=== PATIENT | female | born 1955 | race Two or more races ===

== ENCOUNTER 2019-10-11 07:40 | Inpatient (IN) | payer MEDICARE, OTHER ==
[~2019-10-11] VITALS: Ht 157.5 cm; Wt 67.6 kg
--- NOTE | 2019-10-11 07:43 | Emergency Room Report ---
History of Present Illness General Chief Complaint: Flu Like Symptoms Source: Patient, EMS Present Illness HPI Patient is a 64-year-old female presents after increased generalized body aches and fever. She had also reported having some chest pain associate with some coughing. She reports of increased a yellow-green sputum. She had been seen at [facility] yesterday. She was given some prescriptions but was unable to fill them. Patient a prior history of renal transplant as well as diabetes. She denies any vomiting. She had been taking Tylenol. She reports having prior history of hypertension as well. Allergies: Coded Allergies: No Known Allergies (Unverified , 10/11/19) Patient History Past Medical History: see triage record Past Surgical History: other - transplant kidney Reviewed Nursing Documentation: PMH: Agreed; PSxH: Agreed Review of Systems All Other Systems: negative except mentioned in HPI Physical Exam General Appearance: alert, GCS 15, Chronically Ill Eyes: bilateral eye other - disconjugate gaze ENT: hearing grossly normal Neck: full range of motion Cardiovascular #1: no edema, tachycardia Gastrointestinal: normal bowel sounds, soft Genitourinary: no CVA tenderness Musculoskeletal: normal inspection, back normal Neurologic: alert, motor strength/tone normal, tuyere fitter III-XII nml as tested, EOM palsy, oriented x3 Psychiatric: normal inspection, judgement/insight normal Skin: no rash Medical Decision Making Diagnostic Impression: Primary Impression: Severe sepsis Additional Impressions: Pneumonia Transplant ER Course Patient presented for fever and chest discomfort. Differential diagnosis include was not limited to pneumonia, influenza, myocardial infarction, rejection among others. Because of complexity of patient's case laboratory tests and imaging studies were ordered. Patient was noted to have recent visit to [facility]. Will attempt to obtain old records. Patient will be empirically given IV fluids as well as IV antibiotics as she is high risk for sepsis given her transplant status.Patient was initially noted to be hypoxic. She was started on supplemental oxygen. Patient states that she does not use oxygen at home.Laboratory testing was notable for normal white blood count. Patient was noted to have elevated temperature in the emergency department. Patient will be hospitalized due to acute febrile illness and transplant status as well as hypoxemia.Given the current prevalence of influenza patient was given oral Tamiflu.Patient was discussed with Dr. Sherman for [facility] ( Dr. Carrasco) to panel physician. Patient will be admitted to stepdown unit. SEPSIS RE-EVALUATION: Blane Simmons MD, Performed the Sepsis Re-evaluation at 10:08. Patient had improvement in her heart rate down to 93 blood pressure continues to be stable. Improvement in blood pressure. Skin perfusion appears to be normal as is mental status. Labs Test 10/11/19 07:59 White Blood Count 6.1 K/UL (4.8-10.8) Red Blood Count 3.62 M/UL (4.20-5.40) Hemoglobin 10.6 G/DL (12.0-16.0) Hematocrit 33.2 % (37.0-47.0) Mean Corpuscular Volume 92 FL (80-99) Mean Corpuscular Hemoglobin 29.3 PG (27.0-31.0) Mean Corpuscular Hemoglobin Concent 31.9 G/DL (32.0-36.0) Red Cell Distribution Width 11.9 % (11.6-14.8) Platelet Count 130 K/UL (150-450) Mean Platelet Volume 7.5 FL (6.5-10.1) Neutrophils (%) (Auto) % (45.0-75.0) Lymphocytes (%) (Auto) % (20.0-45.0) Monocytes (%) (Auto) % (1.0-10.0) Eosinophils (%) (Auto) % (0.0-3.0) Basophils (%) (Auto) % (0.0-2.0) Differential Total Cells Counted 100 Neutrophils % (Manual) 89 % (45-75) Lymphocytes % (Manual) 6 % (20-45) Monocytes % (Manual) 2 % (1-10) Eosinophils % (Manual) 0 % (0-3) Basophils % (Manual) 0 % (0-2) Band Neutrophils 3 % (0-8) Platelet Estimate Decreased Platelet Morphology Normal Hypochromasia 1+ Anisocytosis 1+ Sodium Level 139 MMOL/L (136-145) Potassium Level 3.7 MMOL/L (3.5-5.1) Chloride Level 104 MMOL/L (98-107) Carbon Dioxide Level 19 MMOL/L (21-32) Anion Gap 16 mmol/L (5-15) Blood Urea Nitrogen 32 mg/dL (7-18) Creatinine 1.4 MG/DL (0.55-1.30) Estimat Glomerular Filtration Rate 38.0 mL/min (>60) Glucose Level 110 MG/DL (74-106) Lactic Acid Level 4.00 mmol/L (0.4-2.0) Calcium Level 8.2 MG/DL (8.5-10.1) Phosphorus Level 3.3 MG/DL (2.5-4.9) Magnesium Level 1.1 MG/DL (1.8-2.4) Total Bilirubin 1.0 MG/DL (0.2-1.0) Aspartate Amino Transf (AST/SGOT) 75 U/L (15-37) Alanine Aminotransferase (ALT/SGPT) 42 U/L (12-78) Alkaline Phosphatase 142 U/L (46-116) Total Creatine Kinase 78 U/L (26-308) Creatine Kinase MB < 0.5 NG/ML (0.0-3.6) Creatine Kinase MB Relative Index 0.6 Troponin I 0.000 ng/mL (0.000-0.056) Total Protein 6.5 G/DL (6.4-8.2) Albumin 3.5 G/DL (3.4-5.0) Globulin 3.0 g/dL Albumin/Globulin Ratio 1.2 (1.0-2.7) EKG Diagnostic Results Rate: tachycardiac - 113 Rhythm: NSR ST Segments: no acute changes ASA given to the pt in ED: No Rhythm Strip Diag. Results EP Interpretation: yes Rhythm: no PVC's, no ectopy, other - sinus tachycardia 112 Reevaluation Time: 09:06 Status: improved Reevaluation Impression Patient was given IV fluids as well as IV IV antibiotics. Chest x-ray showed some evidence of left sided infiltrate and possible pneumonia. Patient was noted to have elevated lactic acid level. She was noted to have improved heart rate as well as improved perfusion Disposition: ADMITTED INPATIENT Condition: Stable Scripts Unable to Obtain Active Prescriptions or Reported Meds Blane Vides MD Oct 11, 2019 07:43
[2019-10-11] MEDS ORDERED: Azithromycin 500 MG in D5W 275 ML IVPB ONE (08:00)
[2019-10-11] MEDS ORDERED: Ampicillin/Sulbactam Sod 3 GM in NS 110 ML IVPB ONE (08:00)
[2019-10-11 08:16] VITALS: BP 153/62
[2019-10-11] MEDS ORDERED: Unasyn 1.5gm Vial ONE (08:22)
[2019-10-11] MEDS ORDERED: Acetaminophen 500mg (ES) tab ORAL ONE (08:30)
[2019-10-11 08:34] LABS: HEMATOCRIT 33.2 % (37.0-47.0); HEMOGLOBIN 10.6 G/DL (12.0-16.0); MEAN CORPUSCULAR VOLUME 92 FL (80-99); PLATELET COUNT 130 K/UL (150-450); RED BLOOD COUNT 3.62 M/UL (4.20-5.40); RED CELL DISTRIBUTION WIDTH 11.9 % (11.6-14.8); WHITE BLOOD COUNT 6.1 K/UL (4.8-10.8)
[2019-10-11 08:41] LABS: ANION GAP 16 mmol/L (5-15); BLOOD UREA NITROGEN 32 mg/dL (7-18); CALCIUM 8.2 MG/DL (8.5-10.1); CARBON DIOXIDE 19 MMOL/L (21-32); CHLORIDE 104 MMOL/L (98-107); CREATININE 1.4 MG/DL (0.55-1.30); POTASSIUM 3.7 MMOL/L (3.5-5.1); SODIUM 139 MMOL/L (136-145)
[2019-10-11] MEDS ORDERED: Oseltamivir 75mg cap ORAL ONE (08:45)
[2019-10-11 08:54] LABS: ALANINE AMINOTRANSFERASE 42 U/L (12-78); ALBUMIN 3.5 G/DL (3.4-5.0); ALBUMIN/GLOBULIN RATIO 1.2 (1.0-2.7); ALKALINE PHOSPHATASE 142 U/L (46-116); ASPARTATE AMINO TRANSFERASE 75 U/L (15-37); CKMB < 0.5 NG/ML (0.0-3.6); CREATINE KINASE 78 U/L (26-308); PHOSPHORUS 3.3 MG/DL (2.5-4.9)
[2019-10-11] MEDS ORDERED: Azithromycin 500mg Inj IV ONE (08:56)
--- NOTE | 2019-10-11 09:03 | Diagnostic Imaging Report ---
Indication: Shortness of breath, fever Technique: One view of the chest Comparison: none Findings: Inspiration is suboptimal, with crowding of the bronchovascular markings at both lung bases. There is generalized interstitial congestion. There are also likely more focal bilateral basilar airspace opacities, left greater than right. The heart size is normal. The pleural spaces are clear. Venous stents are seen in the left axilla and left subclavian veins Impression: Generalized interstitial congestion, may indicate pulmonary edema. More focal airspace opacities are seen at both lung bases, left greater than right, may indicate pulmonary airspace edema or infiltrates secondary to pneumonia. Correlate with clinical findings Findings discussed by phone with Dr. Vides in the emergency room at the time of interpretation
[2019-10-11 09:18] LABS: APPEARANCE,URINE CLEAR; BILIRUBIN, URINE NEGATIVE (NEGATIVE); COLOR,URINE PALE YELLOW; GLUCOSE, URINE (UA) NEGATIVE (NEGATIVE); KETONES,URINE NEGATIVE (NEGATIVE); LEUKOCYTE ESTERASE ,URINE 2+ (NEGATIVE); NITRITE,URINE NEGATIVE (NEGATIVE); PH,URINE 5 (4.5-8.0); PROTEIN,URINE 2+ (NEGATIVE); UROBILINOGEN,URINE NORMAL MG/DL (0.0-1.0)
[2019-10-11 09:36] VITALS: BP 153/62
[2019-10-11 11:48] VITALS: BP 141/60
--- NOTE | 2019-10-11 11:55 | History and Physical ---
History of Present Illness General Date patient seen: Oct 11, 2019 Reason for Hospitalization: Flu Like Symptoms Present Illness HPI 64-year-old female with history of kidney transplantation discharged from [facility] with pneumonia/influenza the night before admission , now presenting with persistent yellow green phlegm. She was given a prescription that she has not filled yet, unclear as to what medication was prescribed. No fevers, chills , chest pain, or shortness of breath. Denies nausea, vomiting, diarrhea, constipation, or other GI complaints. No sick contacts or recent travel. Kidney trans plant has been functioning well. In the ER she was found to be febrile to 103.4F, bp 153/87, pulse 124, rr 29, o2 sat 95% on 2L Cr. 1.4, baseline unknown. H/H 10.6/33.2, plt 130 Chest x-ray showed possible bibasilar infiltrates. PAST MEDICAL HISTORY: DM, s/p kidney transplant 3 yrs ago PAST SURGICAL HISTORY: Kidney transplantation. SOCIAL HISTORY: She denies any tobacco, alcohol, or drug use. FAMILY HISTORY: DM Allergies: Coded Allergies: No Known Allergies (Unverified , 10/11/19) Medication History Scheduled Atorvastatin (Lipitor), 40 MG ORAL BEDTIME, (Reported) Clopidogrel Bisulfate* (Plavix*), 75 MG ORAL DAILY, (Reported) Dexlansoprazole (Dexilant), 60 MG ORAL DAILY, (Reported) Folic Acid* (Folic Acid*), 1 MG ORAL DAILY, (Reported) Insulin Glargine (Lantus), 0 SUBQ TID, (Reported) Labetalol HCl (Labetalol HCl), 50 MG ORAL EVERY 12 HOURS, (Reported) Multivitamins* (Multivitamins*), 1 TAB ORAL DAILY, (Reported) Mycophenolate Sodium (Myfortic), 180 MG PO EVERY 12 HOURS, (Reported) Prednisone (Prednisone), 5 MG PO DAILY, (Reported) Sodium Polystyrene Sulfonate (Sodium Polystyrene Sulfonate), 15 GM PO NEEDED, (Reported) Scheduled PRN Acetaminophen (Acetaminophen), 650 MG ORAL Q4H PRN for For Pain, (Reported) Bisacodyl (Dulcolax), 10 MG PO for Constipation, (Reported) Clonidine HCl (Clonidine HCl), 0.2 MG PO PRN PRN for For High Blood Pressure, ( Reported) Docusate Sodium (Docusate Sodium), 100 MG ORAL TWICE A DAY PRN for Constipation, (Reported) Loratadine (Loratadine), 10 MG PO DAILY PRN for Itching, (Reported) Ondansetron (Zofran), 2 MG ORAL Q4HR PRN for Nausea & Vomiting, (Reported) Miscellaneous Medications Tacrolimus (Envarsus Xr), 1 MG PO, (Reported) Patient History Healthcare decision maker Resuscitation status Advanced Directive on File Review of Systems Constitutional: Reports: no symptoms, see HPI, chills, sweats, fever, malaise, weakness, other - yellow phlegm Eye: Denies: no symptoms, see HPI, eye pain, blurred vision, tearing, double vision, nose pain, nose congestion, acuity changes, discharge, other ENT: Denies: no symptoms, see HPI, ear pain, ear discharge, nose pain, nose congestion, throat pain, throat swelling, mouth pain, hearing loss, nasal discharge, other Respiratory: Reports: cough, shortness of breath Cardiovascular: Denies: no symptoms, see HPI, chest pain, edema, palpitations, syncope, PND, other Gastrointestinal: Denies: no symptoms, see HPI, abdominal pain, constipation, diarrhea, nausea, vomiting, melena, hematemesis, other Genitourinary: Denies: no symptoms, see HPI, discharge, dysuria, frequency, hematuria, pain, retention, incontinence, urgency, vag bleed/dc, other Musculoskeletal: Denies: no symptoms, see HPI, back pain, gout, joint pain, joint swelling, muscle pain, muscle stiffness, other Skin: Denies: no symptoms, see HPI, rash, change in color, change in hair/nails , dryness, lesions, other Psychiatric: Denies: no symptoms, see HPI, prior hx, anxiety, depressed feelings, emotional problems, SI, HI, hallucinations, other Neurological: Denies: no symptoms, see HPI, headache, numbness, paresthesia, seizure, tingling, tremors, focal weakness, syncope, dizziness, other Endocrine: Denies: no symptoms, see HPI, excessive sweating, flushing, intolerance to temperature, increased thirst, increased urine, unexplained weight loss, other Physical Exam Physical Exam Narrative GENERAL: moderte respiratory distress. Awake, alert, and oriented x3. HEENT: Normocephalic and atraumatic. NECK: Supple no JVD. CHEST: coarse breath sounds, no rales, or wheezing HEART: Regular rate and rhythm.S1S2, no m/r/g ABDOMEN: Soft, nontender, and nondistended, no organomegaly EXTREMITIES: No cyanosis, clubbing or edema NEUROLOGICAL: Alert and oriented x3, grossly normal SKIN: Nol ulcers Last 24 Hour Vital Signs Date Time Temp Pulse Resp B/P (MAP) Pulse Ox O2 Delivery O2 Flow Rate FiO2 10/11/19 11:48 101.0 93 27 141/60 95 Room Air 2.0 10/11/19 09:36 102.4 97 24 153/62 99 Room Air 2.0 10/11/19 09:35 102.4 10/11/19 08:17 107 29 Room Air 10/11/19 08:16 103.4 107 29 153/62 92 Nasal Cannula 2.0 10/11/19 07:35 99.9 124 20 153/87 (109) 95 Room Air Laboratory Tests Test 10/11/19 07:59 10/11/19 09:00 10/11/19 09:48 White Blood Count 6.1 K/UL (4.8-10.8) Red Blood Count 3.62 M/UL (4.20-5.40) L Hemoglobin 10.6 G/DL (12.0-16.0) L Hematocrit 33.2 % (37.0-47.0) L Mean Corpuscular Volume 92 FL (80-99) Mean Corpuscular Hemoglobin 29.3 PG (27.0-31.0) Mean Corpuscular Hemoglobin Concent 31.9 G/DL (32.0-36.0) L Red Cell Distribution Width 11.9 % (11.6-14.8) Platelet Count 130 K/UL (150-450) L Mean Platelet Volume 7.5 FL (6.5-10.1) Neutrophils (%) (Auto) % (45.0-75.0) Lymphocytes (%) (Auto) % (20.0-45.0) Monocytes (%) (Auto) % (1.0-10.0) Eosinophils (%) (Auto) % (0.0-3.0) Basophils (%) (Auto) % (0.0-2.0) Differential Total Cells Counted 100 Neutrophils % (Manual) 89 % (45-75) H Lymphocytes % (Manual) 6 % (20-45) L Monocytes % (Manual) 2 % (1-10) Eosinophils % (Manual) 0 % (0-3) Basophils % (Manual) 0 % (0-2) Band Neutrophils 3 % (0-8) Platelet Estimate Decreased L Platelet Morphology Normal Hypochromasia 1+ Anisocytosis 1+ Sodium Level 139 MMOL/L (136-145) Potassium Level 3.7 MMOL/L (3.5-5.1) Chloride Level 104 MMOL/L (98-107) Carbon Dioxide Level 19 MMOL/L (21-32) L Anion Gap 16 mmol/L (5-15) H Blood Urea Nitrogen 32 mg/dL (7-18) H Creatinine 1.4 MG/DL (0.55-1.30) H Estimat Glomerular Filtration Rate 38.0 mL/min (>60) Glucose Level 110 MG/DL (74-106) H Lactic Acid Level 4.00 mmol/L (0.4-2.0) H 1.90 mmol/L (0.66-2.22) Calcium Level 8.2 MG/DL (8.5-10.1) L Phosphorus Level 3.3 MG/DL (2.5-4.9) Magnesium Level 1.1 MG/DL (1.8-2.4) L Total Bilirubin 1.0 MG/DL (0.2-1.0) Aspartate Amino Transf (AST/SGOT) 75 U/L (15-37) H Alanine Aminotransferase (ALT/SGPT) 42 U/L (12-78) Alkaline Phosphatase 142 U/L (46-116) H Total Creatine Kinase 78 U/L (26-308) Creatine Kinase MB < 0.5 NG/ML (0.0-3.6) Creatine Kinase MB Relative Index 0.6 Troponin I 0.000 ng/mL (0.000-0.056) Total Protein 6.5 G/DL (6.4-8.2) Albumin 3.5 G/DL (3.4-5.0) Globulin 3.0 g/dL Albumin/Globulin Ratio 1.2 (1.0-2.7) Urine Color Pale yellow Urine Appearance Clear Urine pH 5 (4.5-8.0) Urine Specific [place] 1.005 (1.005-1.035) Urine Protein 2+ (NEGATIVE) H Urine Glucose (UA) Negative (NEGATIVE) Urine Ketones Negative (NEGATIVE) Urine Blood 4+ (NEGATIVE) H Urine Nitrite Negative (NEGATIVE) Urine Bilirubin Negative (NEGATIVE) Urine Urobilinogen Normal MG/DL (0.0-1.0) Urine Leukocyte Esterase 2+ (NEGATIVE) H Urine RBC 15-20 /HPF (0 - 2) H Urine WBC 40-60 /HPF (0 - 2) H Urine Squamous Epithelial Cells Occasional /LPF Urine Bacteria Occasional /HPF (NONE) Microbiology Date/Time Source Procedure Growth Status 10/11/19 07:59 Nasal Nares - Final Complete 10/11/19 07:59 Nasal Nares - Final Complete Height (Feet): 5 Height (Inches): 2.00 Weight (Pounds): 150 Assessment/Plan Status: stable Assessment/Plan: 64 year old female with DM and renal transplant admitted with severe sepsis/ septic shock (lactate 4). #Severe Sepsis/ septic shock (severe sepsis + lactate 4) due to possible healthcare-associated pneumonia or viral syndrome. Possibly UTI. in an immunocompromised patient with renal transplant #Acute hypoxic respiratory failure (tachypneic, low oxygen saturation requiring oxygen therapy) #UTI #Lactic acidosis # End-stage renal disease, status post kidney transplant three years ago at [facility] (details of transplant, not known). #ILYA, possible graft nephropathy, or underlying ckd #Thrombocytopenia likely related to sepsis #Anemia- no evidence of acute blood loss Plan Admit to step down unit, place on telemetry IVF- sepsis dose O2 to keep oxygen saturation >95% ABG zosyn, vancomycin, azithromycin, tamiflu check cultures, labs, serology and chest CT Follow up serologies. CT scan of the chest. echocardiogram will try to transfer with [facility], pulmonary and ID consults Renal dose antibiotics avoid nephrotoxic meds Anemia work up Monitor platelet count Immunosuppression per Nephrology and ID Awaiting medication list and further records. VTE ppx SCDs. GI ppx: not indicated Code status: Full code Disposition: Transfer I spent 75 minutes on this patient's case, and 40 minutes was dedicated to critical care. Critical Care Services performed include: Telemetry Review Hemodynamic measurement interpretation Laboratory data review and interpretation Radiology image review and interpretation Interpretation of ABG's Discussion of patient's care with step down team, step down Nursing staff and/ or consulting services. Case discussed with keycase assembler to initiate transfer plan of care discussed with patient's son Jeison I spent an additional 35 minutes in chart review, obtaining old records, labs and imaging. The time of my note may not reflect the time of my patient encounter. Guero Sherman M.D. Oct 11, 2019 11:55
[2019-10-11] MEDS ORDERED: HYDROmorphone 1mg/ml Carpuject IVP PRN (12:00)
[2019-10-11] MEDS ORDERED: Albuterol/Ipratropium 3ml neb HHN PRN (12:00)
[2019-10-11] MEDS ORDERED: Milk of Magnesia 30ml Ud ORAL PRN (12:00)
[2019-10-11] MEDS ORDERED: LORazepam 1mg tab ORAL PRN (12:00)
[2019-10-11] MEDS ORDERED: Zolpidem 5mg tab ORAL PRN (12:00)
--- NOTE | 2019-10-11 12:44 | Consultation ---
Consult Note Consult Note asked to eval at the request of Dr Sherman Chief Complaint: Flu Like Symptoms Patient is a 64-year-old female presents after increased generalized body aches and fever. She had also reported having some chest pain associate with some coughing. She reports of increased a yellow-green sputum. She had been seen at [facility] yesterday. She was given some prescriptions but was unable to fill them. Patient a prior history of renal transplant as well as diabetes. She denies any vomiting. She had been taking Tylenol. She reports having prior history of hypertension as well. No Known Allergies (Unverified , 10/11/19) Past Surgical History: other - transplant kidney Reviewed Nursing Documentation: PMH: Agreed; PSxH: Agreed examined no med list discussed with Dr sherman Assessment/Plan Sepsis , high Lactic level UTI s/p Kidney Transplant 3 y ago in [facility] Low mag of 1.1 Cr 1.4 - renal failure Anemia Mag IV IV Fluids need to get the immunosupressants meds from [facility] I favor transfer to [facility] under transplant team Jaime Stein MD Oct 11, 2019 12:44
--- NOTE | 2019-10-11 12:47 | Infectious Diseases Prog Note ---
Assessment/Plan Assessment/Plan Full consult dictated: A) 1) sepsis, uti, pna, fevers 2) renal transplant 3) immunocompromised 4) allergies - nkda 5) pmh noted P) 1) zosyn, vancomycin, azithromycin, tamiflu 2) check cultures, labs, serology and chest x-ray 3) will f/u 4) thanks Subjective Allergies: Coded Allergies: No Known Allergies (Unverified , 10/11/19) Objective Vital Signs Last 24 Hour Vital Signs Date Time Temp Pulse Resp B/P (MAP) Pulse Ox O2 Delivery O2 Flow Rate FiO2 10/11/19 11:50 101.0 93 27 141/60 95 Room Air 2.0 10/11/19 11:48 101.0 93 27 141/60 95 Room Air 2.0 10/11/19 09:36 102.4 97 24 153/62 99 Room Air 2.0 10/11/19 09:35 102.4 10/11/19 08:17 107 29 Room Air 10/11/19 08:16 103.4 107 29 153/62 92 Nasal Cannula 2.0 10/11/19 07:35 99.9 124 20 153/87 (109) 95 Room Air Height (Feet): 5 Height (Inches): 2.00 Weight (Pounds): 150 Microbiology Date/Time Source Procedure Growth Status 10/11/19 07:59 Nasal Nares - Final Complete 10/11/19 07:59 Nasal Nares - Final Complete Laboratory Tests Test 10/11/19 07:59 10/11/19 09:00 10/11/19 09:48 White Blood Count 6.1 K/UL (4.8-10.8) Red Blood Count 3.62 M/UL (4.20-5.40) L Hemoglobin 10.6 G/DL (12.0-16.0) L Hematocrit 33.2 % (37.0-47.0) L Mean Corpuscular Volume 92 FL (80-99) Mean Corpuscular Hemoglobin 29.3 PG (27.0-31.0) Mean Corpuscular Hemoglobin Concent 31.9 G/DL (32.0-36.0) L Red Cell Distribution Width 11.9 % (11.6-14.8) Platelet Count 130 K/UL (150-450) L Mean Platelet Volume 7.5 FL (6.5-10.1) Neutrophils (%) (Auto) % (45.0-75.0) Lymphocytes (%) (Auto) % (20.0-45.0) Monocytes (%) (Auto) % (1.0-10.0) Eosinophils (%) (Auto) % (0.0-3.0) Basophils (%) (Auto) % (0.0-2.0) Differential Total Cells Counted 100 Neutrophils % (Manual) 89 % (45-75) H Lymphocytes % (Manual) 6 % (20-45) L Monocytes % (Manual) 2 % (1-10) Eosinophils % (Manual) 0 % (0-3) Basophils % (Manual) 0 % (0-2) Band Neutrophils 3 % (0-8) Platelet Estimate Decreased L Platelet Morphology Normal Hypochromasia 1+ Anisocytosis 1+ Sodium Level 139 MMOL/L (136-145) Potassium Level 3.7 MMOL/L (3.5-5.1) Chloride Level 104 MMOL/L (98-107) Carbon Dioxide Level 19 MMOL/L (21-32) L Anion Gap 16 mmol/L (5-15) H Blood Urea Nitrogen 32 mg/dL (7-18) H Creatinine 1.4 MG/DL (0.55-1.30) H Estimat Glomerular Filtration Rate 38.0 mL/min (>60) Glucose Level 110 MG/DL (74-106) H Lactic Acid Level 4.00 mmol/L (0.4-2.0) H 1.90 mmol/L (0.66-2.22) Calcium Level 8.2 MG/DL (8.5-10.1) L Phosphorus Level 3.3 MG/DL (2.5-4.9) Magnesium Level 1.1 MG/DL (1.8-2.4) L Total Bilirubin 1.0 MG/DL (0.2-1.0) Aspartate Amino Transf (AST/SGOT) 75 U/L (15-37) H Alanine Aminotransferase (ALT/SGPT) 42 U/L (12-78) Alkaline Phosphatase 142 U/L (46-116) H Total Creatine Kinase 78 U/L (26-308) Creatine Kinase MB < 0.5 NG/ML (0.0-3.6) Creatine Kinase MB Relative Index 0.6 Troponin I 0.000 ng/mL (0.000-0.056) Total Protein 6.5 G/DL (6.4-8.2) Albumin 3.5 G/DL (3.4-5.0) Globulin 3.0 g/dL Albumin/Globulin Ratio 1.2 (1.0-2.7) Urine Color Pale yellow Urine Appearance Clear Urine pH 5 (4.5-8.0) Urine Specific [place] 1.005 (1.005-1.035) Urine Protein 2+ (NEGATIVE) H Urine Glucose (UA) Negative (NEGATIVE) Urine Ketones Negative (NEGATIVE) Urine Blood 4+ (NEGATIVE) H Urine Nitrite Negative (NEGATIVE) Urine Bilirubin Negative (NEGATIVE) Urine Urobilinogen Normal MG/DL (0.0-1.0) Urine Leukocyte Esterase 2+ (NEGATIVE) H Urine RBC 15-20 /HPF (0 - 2) H Urine WBC 40-60 /HPF (0 - 2) H Urine Squamous Epithelial Cells Occasional /LPF Urine Bacteria Occasional /HPF (NONE) Current Medications Medications (Trade) Dose Ordered Sig/Rodney Route PRN Reason Start Time Stop Time Status Last Admin Dose Admin Acetaminophen (Tylenol) 650 mg Q4H PRN ORAL Mild Pain (Pain Scale 1-3) 10/11/19 12:00 11/10/19 11:59 Acetaminophen (Tylenol) 650 mg Q4H PRN ORAL fever 10/11/19 12:00 11/10/19 11:59 Albuterol/ Ipratropium (Albuterol/ Ipratropium) 3 ml Q4H PRN HHN Shortness of Breath 10/11/19 12:00 10/16/19 11:59 Azithromycin 500 mg/Dextrose 275 ml @ 275 mls/hr Q24HRS IV 10/12/19 09:00 10/18/19 09:59 Clonidine HCl (Catapres Tab) 0.1 mg Q4H PRN ORAL bp over 165 syst 10/11/19 12:45 11/10/19 12:44 Dextrose (Dextrose 50%) 25 ml Q30M PRN IV Hypoglycemia 10/11/19 12:00 11/10/19 11:59 Dextrose (Dextrose 50%) 50 ml Q30M PRN IV Hypoglycemia 10/11/19 12:00 11/10/19 11:59 Dextrose/Sodium Chloride 1,000 ml @ 100 mls/hr Q10H IV 10/11/19 12:45 11/10/19 12:44 Docusate Sodium (Colace) 100 mg TWICE A DAY ORAL 10/11/19 12:45 11/10/19 12:44 Heparin Sodium (Porcine) (Heparin 5000 units/ml) 5,000 units EVERY 12 HOURS SUBQ 10/11/19 21:00 11/10/19 20:59 Hydromorphone HCl (Dilaudid) 1 mg Q4H PRN IVP Moderate Pain (Pain Scale 4-6) 10/11/19 12:00 10/18/19 11:59 Hydromorphone HCl (Dilaudid) 2 mg Q4H PRN IVP Severe Pain (Pain Scale 7-10) 10/11/19 12:00 10/18/19 11:59 Lorazepam (Ativan) 1 mg Q4H PRN ORAL For Anxiety 10/11/19 12:00 10/18/19 11:59 Magnesium Sulfate 100 ml @ 100 mls/hr Q1H IVPB 10/11/19 12:45 10/11/19 16:44 Ondansetron HCl (Zofran) 4 mg Q6H PRN IVP Nausea & Vomiting 10/11/19 12:00 11/10/19 11:59 Oseltamivir Phosphate (Tamiflu) 30 mg BID ORAL 10/11/19 18:00 10/16/19 17:59 Pantoprazole (Protonix) 40 mg BID ORAL 10/11/19 12:45 11/10/19 12:44 Piperacillin Sod/ Tazobactam Sod 3.375 gm/Sodium Chloride 110 ml @ 27.5 mls/hr EVERY 8 HOURS IVPB 10/11/19 14:00 10/16/19 13:59 Vancomycin HCl (Vanco rx to dose) 1 ea DAILY PRN MISC Per rx protocol 10/11/19 12:45 11/10/19 12:44 Vancomycin HCl 500 mg/Dextrose 110 ml @ 110 mls/hr Q12HR@0600,1800 IVPB 10/11/19 18:00 10/16/19 17:59 Zolpidem Tartrate (Ambien) 5 mg HSPRN PRN ORAL Insomnia 10/11/19 12:00 10/18/19 11:59 Ida New MD Oct 11, 2019 12:47
[2019-10-11] MEDS: D5NS 1,000 ML IV SCH ×2 (12:53→22:56)
[2019-10-11] MEDS: Docusate 100mg cap ORAL SCH ×2 (12:53→18:00)
--- NOTE | 2019-10-11 13:30 | Consultation ---
Consult Note Assessment/Plan DICT # [id number] Akbar Mercado MD Oct 11, 2019 13:30
[2019-10-11] MEDS ORDERED: ACETAMINOPHEN500 M5 ORAL (13:37)
[2019-10-11] MEDS ORDERED: MULTIVITAMINS1 EAC2 ORAL (13:37)
[2019-10-11] MEDS ORDERED: MYFORTIC180 MG PO (13:37)
[2019-10-11] MEDS ORDERED: CLONIDINE 0.2M0.2 MG PO (13:37)
[2019-10-11] MEDS ORDERED: ENVARSUS XR1 MG PO (13:37)
[2019-10-11] MEDS ORDERED: LIPITOR80 MG ORAL (13:37)
[2019-10-11] MEDS ORDERED: NORMODYNE100 MG ORAL (13:37)
[2019-10-11] MEDS ORDERED: FOLIC ACID1 MG ORAL (13:37)
[2019-10-11] MEDS ORDERED: DEXILANT60 MG ORAL (13:37)
[2019-10-11] MEDS ORDERED: PREDNISONE5 M4 PO (13:37)
[2019-10-11] MEDS ORDERED: ZOFRAN4 M1 ORAL (13:37)
[2019-10-11] MEDS ORDERED: PLAVIX75 MG ORAL (13:37)
[2019-10-11] MEDS ORDERED: DULCOLAX5 MG PO (13:38)
[2019-10-11] MEDS ORDERED: LORATADINE10 M2 PO (13:45)
[2019-10-11] MEDS ORDERED: DOCUSATE SODIU100 M2 ORAL (13:45)
[2019-10-11] MEDS ORDERED: SODIUM POL15 GM/60 M PO (13:45)
[2019-10-11] MEDS ORDERED: LANTUS SOL100 UNIT/1 SUBQ (13:45)
[2019-10-11] MEDS ORDERED: Piperacillin/Tazobactam 2.25 GM in D5W 55 ML IVPB SCH (14:00)
[2019-10-11] MEDS: Zoysn 3.37gm in NS 100ML IVPB SCH ×2 (15:07→22:06)
--- NOTE | 2019-10-11 16:45 | Consultation ---
DATE OF CONSULTATION: 10/11/2019 PULMONARY CONSULTATION CONSULTING PHYSICIAN: Akbar Mercado M.D. REFERRING PHYSICIAN: Dr. Guero Sherman. REASON FOR CONSULTATION: Pneumonia and flu-like symptoms. HISTORY OF PRESENT ILLNESS: The patient is a 64-year-old female with a history of kidney transplantation discharged from [facility] with pneumonia, now presenting with persistent yellow green phlegm. She was given prescriptions of which she is unclear. No fevers, chills, chest pain, or shortness of breath. No nausea, vomiting, diarrhea, constipation, or other complaints. Chest x-ray showed possible bibasilar infiltrates. The patient is being treated empirically for healthcare-associated pneumonia, urinary tract infection, and sepsis. PAST MEDICAL HISTORY: 1. Kidney transplant. 2. Diabetes. PAST SURGICAL HISTORY: Kidney transplantation. ALLERGIES: No known drug allergies. MEDICATIONS: Prior to admission medications not available. Current medications reviewed. SOCIAL HISTORY: She denies any tobacco, alcohol, or drug use. FAMILY HISTORY: Noncontributory. REVIEW OF SYSTEMS: Negative other than the history of present illness. PHYSICAL EXAMINATION: VITAL SIGNS: Temperature max is 103.4, heart rate 93, blood pressure 141/60, respiratory rate 27, saturating 95% on room air. GENERAL: She is a well-developed and well-nourished female in no acute distress. Awake, alert, and oriented x3. HEENT: Normocephalic and atraumatic. Oropharynx is clear with moist mucous membranes. NECK: Supple without lymphadenopathy or JVD. CHEST: Scattered coarse breath sounds. HEART: Regular rate and rhythm. ABDOMEN: Soft, nontender, and nondistended. EXTREMITIES: No cyanosis, clubbing or edema. ANCILLARY DATA: White count 6.1, hemoglobin 10.6, and platelet count 130. Sodium 139, potassium 3.7, chloride 104, bicarbonate 19, BUN 32, creatinine 1.4, glucose 110. Lactic acid 4, now 1.9. Calcium 8.2, phosphorus 3.3, magnesium 1.1. Total bilirubin 1, AST 75, ALT 42, alkaline phosphatase 142. CK 78. Troponin negative. Total protein 6.5, albumin 3.5, globulin 3.0, ratio 1.0. Urinalysis, 4+ blood, 2+ protein, 2+ leukocyte esterase. Chest x-ray reviewed by myself with bibasilar opacities. 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 PROBLEM LIST: 1. Febrile illness. 2. Sepsis versus viral syndrome. 3. Possible healthcare-associated pneumonia. 4. End-stage renal disease, status post kidney transplant three years ago at [facility] (details of transplant, not known). 5. Lactic acidosis, resolved. 6. Thrombocytopenia. 7. 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 TREATMENT PLAN: 1. Optimize pulmonary hygiene/mobilize as tolerated. 2. Titrate down FiO2 to keep saturations greater than 90%. 3. We will check an ABG to assess baseline gas exchange. 4. Continue Zosyn, vancomycin, azithromycin, Tamiflu per ID. 5. Follow up serologies. 6. We will obtain a CT scan of the chest. 7. Immunosuppression per Nephrology and ID. 8. Awaiting medication list and further records. 9. Monitor volumes and renal function. 10. Follow up echocardiogram. 11. DVT prophylaxis, SCDs. 12. Monitor platelet count. I would strongly advise transferring the patient to [facility] once it is possible. Dr. Calvert, thank you for allowing me to assist in the care of your patient. If I may be of any assistance in the future, please do not hesitate to ask. Akbar Mercado M.D. DR: Marco JOB#: [id number] CC:
[2019-10-11] MEDS: NovoLOG Insulin Flexpen SUBQ SCH ×2 (17:25→20:33)
[2019-10-11] MEDS: Vancomycin 500mg/D5W 110ml IVPB SCH ×2 (18:09)
[2019-10-11 20:00] VITALS: BP 160/78
[2019-10-11] MEDS: Heparin 5000 units/ml inj SUBQ SCH (20:34)
[2019-10-11] MEDS ORDERED: Atorvastatin 20mg tab ORAL SCH (21:00)
[2019-10-12] VITALS: BP 124/56
[2019-10-12 04:00] VITALS: BP 132/63
[2019-10-12 04:35] LABS: HEMATOCRIT 29.6 % (37.0-47.0); HEMOGLOBIN 9.7 G/DL (12.0-16.0); MEAN CORPUSCULAR VOLUME 91 FL (80-99); PLATELET COUNT 116 K/UL (150-450); RED BLOOD COUNT 3.26 M/UL (4.20-5.40); RED CELL DISTRIBUTION WIDTH 12.2 % (11.6-14.8); WHITE BLOOD COUNT 15.8 K/UL (4.8-10.8)
[2019-10-12] MEDS: Vancomycin 500mg/D5W 110ml IVPB SCH ×2 (05:17)
[2019-10-12 05:29] LABS: % IRON SATURATION 5 % (15-50); IRON 9 ug/dL (50-175); TOTAL IRON BINDING CAPACITY 177 ug/dL (250-450)
[2019-10-12 05:38] LABS: ALANINE AMINOTRANSFERASE 35 U/L (12-78); ALBUMIN 2.9 G/DL (3.4-5.0); ALKALINE PHOSPHATASE 102 U/L (46-116); ANION GAP 10 mmol/L (5-15); ASPARTATE AMINO TRANSFERASE 42 U/L (15-37); BLOOD UREA NITROGEN 18 mg/dL (7-18); CALCIUM 7.9 MG/DL (8.5-10.1); CARBON DIOXIDE 21 MMOL/L (21-32); CHLORIDE 108 MMOL/L (98-107); CHOLESTEROL 80 MG/DL (< 200); CREATININE 1.1 MG/DL (0.55-1.30); FERRITIN 980 NG/ML (8-388); GAMMA GLUTAMYL TRANSPEPTIDASE 153 U/L (5-85); HDL CHOLESTEROL 46 MG/DL (40-60); PHOSPHORUS 2.4 MG/DL (2.5-4.9); POTASSIUM 3.2 MMOL/L (3.5-5.1); SODIUM 139 MMOL/L (136-145); TRIGLYCERIDES 115 MG/DL (30-150)
[2019-10-12] MEDS: Zoysn 3.37gm in NS 100ML IVPB SCH (06:18)
[2019-10-12] MEDS: NovoLOG Insulin Flexpen SUBQ SCH ×2 (06:23→11:30)
[2019-10-12 08:00] VITALS: BP 148/78
--- NOTE | 2019-10-12 08:01 | General Progress Note ---
Assessment/Plan Status: stable Assessment/Plan: 64 year old female with DM and renal transplant admitted with severe sepsis/ septic shock (lactate 4). she usually gets her care at [facility], seen in the ER there last night, was told has flu, discharged home on unknown medication. assessment sepsis, uti, pna, in immunocompromised patient with renal transplant Plan zosyn, vancomycin, azithromycin, tamiflu check cultures, labs, serology and chest CT will try to transfer with [facility], pulmonary and ID consults Renal dose antibiotics avoid nephrotoxic meds Subjective Allergies: Coded Allergies: No Known Allergies (Unverified , 10/11/19) Objective Last 24 Hour Vital Signs Date Time Temp Pulse Resp B/P (MAP) Pulse Ox O2 Delivery O2 Flow Rate FiO2 10/12/19 04:00 2.0 10/12/19 04:00 98.4 83 2 132/63 (86) 97 10/12/19 04:00 83 10/12/19 04:00 Nasal Cannula 2.0 Nasal Cannula 2.0 10/12/19 00:00 98.8 83 24 124/56 (78) 96 10/12/19 00:00 Nasal Cannula 2.0 Nasal Cannula 2.0 10/12/19 00:00 81 10/11/19 20:58 99.9 10/11/19 20:11 84 20 96 Nasal Cannula 2.0 28 10/11/19 20:00 104 10/11/19 20:00 2.0 10/11/19 20:00 Nasal Cannula 2.0 Nasal Cannula 2.0 10/11/19 20:00 101.8 110 26 160/78 (105) 98 10/11/19 16:00 Nasal Cannula 2.0 Nasal Cannula 2.0 10/11/19 16:00 2.0 10/11/19 15:07 92 10/11/19 12:44 94 10/11/19 12:00 Nasal Cannula 2.0 Nasal Cannula 2.0 10/11/19 11:50 101.0 93 27 141/60 95 Room Air 2.0 10/11/19 11:48 101.0 93 27 141/60 95 Room Air 2.0 10/11/19 09:36 102.4 97 24 153/62 99 Room Air 2.0 10/11/19 09:35 102.4 10/11/19 08:17 107 29 Room Air 10/11/19 08:16 103.4 107 29 153/62 92 Nasal Cannula 2.0 Intake and Output 10/11/19 10/12/19 19:00 07:00 Intake Total 1598.459 ml 1748.167 ml Balance 1598.459 ml 1748.167 ml Intake Oral 480 ml 240 ml IV Total 1118.459 ml 1508.167 ml # Voids 2 5 # Bowel Movements 1 Laboratory Tests 10/11/19 09:00: Urine Color Pale yellow, Urine Appearance Clear, Urine pH 5, Urine Specific [place] 1.005, Urine Protein 2+H, Urine Glucose (UA) Negative, Urine Ketones Negative, Urine Blood 4+H, Urine Nitrite Negative, Urine Bilirubin Negative, Urine Urobilinogen Normal, Urine Leukocyte Esterase 2+H, Urine RBC 15-20H, Urine WBC 40-60H, Urine Squamous Epithelial Cells Occasional, Urine Bacteria Occasional 10/11/19 09:48: Lactic Acid Level 1.90 10/11/19 15:10: Coccidioides Antibody (Comp Fix) [Pending], Mycoplasma pneumoniae IgG Antibody [ Pending], Mycoplasma pneumoniae IgM Ab Titer [Pending] 10/11/19 16:35: Urine Legionella Antigen [Pending] 10/12/19 03:45: White Blood Count 15.8#H, Red Blood Count 3.26L, Hemoglobin 9.7L, Hematocrit 29.6L, Mean Corpuscular Volume 91, Mean Corpuscular Hemoglobin 29.9, Mean Corpuscular Hemoglobin Concent 32.9, Red Cell Distribution Width 12.2, Platelet Count 116L, Mean Platelet Volume 8.6, Neutrophils (%) (Auto) , Lymphocytes (%) ( Auto) , Monocytes (%) (Auto) , Eosinophils (%) (Auto) , Basophils (%) (Auto) , Neutrophils % (Manual) [Pending], Lymphocytes % (Manual) [Pending], Platelet Estimate [Pending], Platelet Morphology [Pending], Sodium Level 139, Potassium Level 3.2L, Chloride Level 108H, Carbon Dioxide Level 21, Anion Gap 10, Blood Urea Nitrogen 18, Creatinine 1.1, Estimat Glomerular Filtration Rate 50.2, Glucose Level 170H, Hemoglobin A1c 8.3H, Lactic Acid Level 1.40, Uric Acid 2.2L , Calcium Level 7.9L, Phosphorus Level 2.4L, Magnesium Level 2.6H, Iron Level 9L , Total Iron Binding Capacity 177L, Percent Iron Saturation 5L, Unsaturated Iron Binding 168, Ferritin 980H, Total Bilirubin 1.0, Gamma Glutamyl Transpeptidase 153H, Aspartate Amino Transf (AST/SGOT) 42H, Alanine Aminotransferase (ALT/SGPT) 35, Alkaline Phosphatase 102, Troponin I 0.141H, C- Reactive Protein, Quantitative 27.0H, Pro-B-Type Natriuretic Peptide 7136H, Total Protein 5.9L, Albumin 2.9L, Globulin 3.0, Albumin/Globulin Ratio 1.0, Triglycerides Level 115, Cholesterol Level 80, LDL Cholesterol 16, HDL Cholesterol 46, Cholesterol/HDL Ratio 1.7L, Thyroid Stimulating Hormone (TSH) 0.900, Cortisol AM Sample [Pending] Height (Feet): 5 Height (Inches): 2.00 Weight (Pounds): 149 Guero Sherman M.D. Oct 12, 2019 08:01
[2019-10-12] MEDS ORDERED: TAMIFLU30 MG ORAL (08:17)
[2019-10-12] MEDS ORDERED: ZOSYN 3.373.375 GM/1 IVPB (08:17)
[2019-10-12] MEDS ORDERED: VANCOMYCIN500 MG/101 IV (08:17)
[2019-10-12] MEDS ORDERED: AZITHROMYCIN500 M1 IVPB (08:17)
--- NOTE | 2019-10-12 08:18 | Discharge Summary ---
Discharge Summary Hospital Course Date of Admission Oct 11, 2019 at 09:06 Date of Discharge Admitting Diagnosis severe sepsis, shock pneumonia, renal transplant, ILYA HPI Mame Dunaway is a 64 year old female who was admitted on Oct 11, 2019 at 09:06 for Pneumonia, Renal Transplant Consultations ID, renal, Pulmonary Hospital Course 64 year old female with DM and renal transplant admitted with severe sepsis/ septic shock (lactate 4). #Severe Sepsis/ septic shock (severe sepsis + lactate 4) due to possible healthcare-associated pneumonia or viral syndrome. Possibly UTI. in an immunocompromised patient with renal transplant #Acute hypoxic respiratory failure (tachypneic, low oxygen saturation requiring oxygen therapy) #UTI #Lactic acidosis # End-stage renal disease, status post kidney transplant three years ago at [place] (details of transplant, not known). #ILYA, possible graft nephropathy, or underlying ckd #Thrombocytopenia likely related to sepsis #Anemia- no evidence of acute blood loss Plan Admit to step down unit, place on telemetry IVF- sepsis dose O2 to keep oxygen saturation >95% ABG zosyn, vancomycin, azithromycin, tamiflu check cultures, labs, serology and chest CT Follow up serologies. CT scan of the chest. echocardiogram will try to transfer with [facility], pulmonary and ID consults Renal dose antibiotics avoid nephrotoxic meds Anemia work up Monitor platelet count Immunosuppression per Nephrology and ID VTE ppx SCDs. GI ppx: not indicated Code status: Full code Disposition: Transfer to [facility] I spent 35 minutes on this patient's case, > 50% spent on counselling and care coordination The time of my note may not reflect the time of my patient encounter. Discharge Medications New Medications: Azithromycin (Azithromycin) 500 Mg Vial 500 MG IVPB Q24H for 4 Days, #4 VIAL Oseltamivir Phosphate (Tamiflu) 30 Mg Capsule 30 MG ORAL TWICE A DAY for 4 Days, #8 CAP Ugzgzweabrqr-Rnhm-Mwrrhffw,Iso (Zosyn 3.375 Gm Pre Mix-Bag) 3.375 Gm/50 Ml Froz.piggy 3.375 GM IVPB EVERY 8 HOURS for 7 Days, #20 BAG Vancomycin/Water For Inj (Peg) (Vancomycin 500 mg/100 ml Bag) 500 Mg/100 Ml Piggyback 500 MG IV EVERY 12 HOURS for 7 Days, #14 BAG Continued Medications: Acetaminophen (Acetaminophen) 500 Mg Tablet 650 MG ORAL Q4H PRN for For Pain, TAB (This prescription has been renewed) Atorvastatin (Lipitor) 80 Mg Tablet 40 MG ORAL BEDTIME, #30 TAB 0 Refills (This prescription has been renewed) Bisacodyl (Dulcolax) 5 Mg Tablet.dr 10 MG PO PRN for Constipation, TAB (This prescription has been renewed) Clonidine HCl (Clonidine HCl) 0.2 Mg Tablet 0.2 MG PO PRN PRN for For High Blood Pressure, TAB (This prescription has been renewed) for SBP > 145 or DBP > 85 Clopidogrel Bisulfate* (Plavix*) 75 Mg Tablet 75 MG ORAL DAILY, TAB (This prescription has been renewed) Dexlansoprazole (Dexilant) 60 Mg Cap.dr.bp 60 MG ORAL DAILY, CAP (This prescription has been renewed) Docusate Sodium (Docusate Sodium) 100 Mg Tablet 100 MG ORAL TWICE A DAY PRN for Constipation, #60 TAB 0 Refills (This prescription has been renewed) Folic Acid* (Folic Acid*) 1 Mg Tablet 1 MG ORAL DAILY, TAB (This prescription has been renewed) Insulin Glargine (Lantus) 100 Unit/1 Ml Insuln.pen 0 SUBQ TID, #1 EA 0 Refills (This prescription has been renewed) Labetalol HCl (Labetalol HCl) 100 Mg Tablet 50 MG ORAL EVERY 12 HOURS, TAB (This prescription has been renewed) for SBP > 145 or DBP > 85 Loratadine (Loratadine) 10 Mg Tablet 10 MG PO DAILY PRN for Itching, TAB (This prescription has been renewed) Multivitamins* (Multivitamins*) 1 Each Tablet 1 TAB ORAL DAILY, TAB 0 Refills (This prescription has been renewed) Mycophenolate Sodium (Myfortic) 180 Mg Tablet.dr 180 MG PO EVERY 12 HOURS, #4 TAB (This prescription has been renewed) Ondansetron (Zofran) 4 Mg Tablet 2 MG ORAL Q4HR PRN for Nausea & Vomiting, TAB (This prescription has been renewed) Prednisone (Prednisone) 5 Mg Tab.ds.pk 5 MG PO DAILY, PACK (This prescription has been renewed) Sodium Polystyrene Sulfonate (Sodium Polystyrene Sulfonate) 15 Gm/60 Ml Oral.susp 15 GM PO NEEDED, ML (This prescription has been renewed) Tacrolimus (Envarsus Xr) 1 Mg Tab.er.24h 1 MG PO, TAB (This prescription has been renewed) Discharge Condition Upon Discharge: stable Discharge Disposition Patient was discharged to [facility] Discharge Diagnoses: (1) Severe sepsis (2) Septic shock (3) Thrombocytopenia (4) Pneumonia (5) ILYA (acute kidney injury) Guero Sherman M.D. Oct 12, 2019 08:18
[2019-10-12] MEDS: D5NS 1,000 ML IV SCH (08:47)
[2019-10-12] MEDS: Heparin 5000 units/ml inj SUBQ SCH (08:48)
[2019-10-12] MEDS: Docusate 100mg cap ORAL SCH (08:55)
[2019-10-12] MEDS ORDERED: Azithromycin 500 MG in D5W 275 ML IV SCH (09:00)
[2019-10-12] MEDS ORDERED: Potassium Phosphate 30 MM in NS 275 ML IVPB ONE (09:00)
[2019-10-12] MEDS ORDERED: Potassium Phosphate 30 MM in NS 275 ML IV ONE (09:30)
[2019-10-12] MEDS ORDERED: D5NS 1,000 ML IV SCH (09:30)
[2019-10-12 12:00] VITALS: BP 123/70
[2019-10-12] MEDS ORDERED: Tubing IV Secondary IV ONE (12:31)
[2019-10-12] MEDS ORDERED: D5NS 1000ml IV ONE (12:31)
[2019-10-12] MEDS ORDERED: NS 275ml ONE (12:31)
--- NOTE | 2019-10-12 12:33 | Pulmonology Progress Note ---
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 PROBLEM LIST: 1. Febrile illness. 2. Sepsis versus viral syndrome. 3. Possible healthcare-associated pneumonia. 4. End-stage renal disease, status post kidney transplant three years ago at [facility] (details of transplant, not known). 5. Lactic acidosis, resolved. 6. Thrombocytopenia. 7. 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 TREATMENT PLAN: 1. Optimize pulmonary hygiene/mobilize as tolerated. 2. Titrate down FiO2 to keep saturations greater than 90%. 3. Continue Zosyn, vancomycin, azithromycin, Tamiflu per ID. 4. Immunosuppression per Nephrology and ID. 5. Monitor volumes and renal function. 6. DVT prophylaxis, SCDs. 7. Monitor platelet count. 8. Transfer to [facility] center Subjective Allergies: Coded Allergies: No Known Allergies (Unverified , 10/11/19) Subjective Tm 100 VSS less SOB less cough no FC no CP Going to [facility] Objective Last 24 Hour Vital Signs Date Time Temp Pulse Resp B/P (MAP) Pulse Ox O2 Delivery O2 Flow Rate FiO2 10/12/19 12:00 97.8 88 20 123/70 (87) 96 10/12/19 12:00 2.0 10/12/19 12:00 Nasal Cannula 2.0 Nasal Cannula 2.0 10/12/19 08:00 Nasal Cannula 2.0 Nasal Cannula 2.0 10/12/19 08:00 98.9 88 21 148/78 (101) 98 10/12/19 08:00 2.0 10/12/19 07:59 90 10/12/19 04:00 2.0 10/12/19 04:00 98.4 83 2 132/63 (86) 97 10/12/19 04:00 83 10/12/19 04:00 Nasal Cannula 2.0 Nasal Cannula 2.0 10/12/19 00:00 98.8 83 24 124/56 (78) 96 10/12/19 00:00 Nasal Cannula 2.0 Nasal Cannula 2.0 10/12/19 00:00 81 10/11/19 20:58 99.9 10/11/19 20:11 84 20 96 Nasal Cannula 2.0 28 10/11/19 20:00 104 10/11/19 20:00 2.0 10/11/19 20:00 Nasal Cannula 2.0 Nasal Cannula 2.0 10/11/19 20:00 101.8 110 26 160/78 (105) 98 10/11/19 16:00 Nasal Cannula 2.0 Nasal Cannula 2.0 10/11/19 16:00 2.0 10/11/19 15:07 92 10/11/19 12:44 94 Intake and Output 10/11/19 10/12/19 19:00 07:00 Intake Total 1598.459 ml 1748.167 ml Balance 1598.459 ml 1748.167 ml Intake Oral 480 ml 240 ml IV Total 1118.459 ml 1508.167 ml # Voids 2 5 # Bowel Movements 1 General Appearance: WD/WN, no acute distress HEENT: normocephalic, atraumatic, anicteric, mucous membranes moist Respiratory/Chest: chest wall non-tender, lungs clear, normal breath sounds, no respiratory distress, no accessory muscle use Cardiovascular: normal peripheral pulses, normal rate, regular rhythm Abdomen: normal bowel sounds, soft, non tender, no organomegaly, non distended , no mass Extremities: no cyanosis, no clubbing, no edema Microbiology Date/Time Source Procedure Growth Status 10/11/19 07:59 Blood Blood Culture - Preliminary Resulted 10/11/19 07:59 Nasal Nares - Final Complete 10/11/19 07:59 Nasal Nares - Final Complete 10/11/19 09:00 Urine,Clean Catch Urine Culture - Preliminary NO GROWTH Resulted Laboratory Tests 10/11/19 15:10: Coccidioides Antibody (Comp Fix) [Pending], Mycoplasma pneumoniae IgG Antibody [ Pending], Mycoplasma pneumoniae IgM Ab Titer [Pending] 10/11/19 16:35: Urine Legionella Antigen [Pending] 10/12/19 03:45: White Blood Count 15.8#H, Red Blood Count 3.26L, Hemoglobin 9.7L, Hematocrit 29.6L, Mean Corpuscular Volume 91, Mean Corpuscular Hemoglobin 29.9, Mean Corpuscular Hemoglobin Concent 32.9, Red Cell Distribution Width 12.2, Platelet Count 116L, Mean Platelet Volume 8.6, Neutrophils (%) (Auto) , Lymphocytes (%) ( Auto) , Monocytes (%) (Auto) , Eosinophils (%) (Auto) , Basophils (%) (Auto) , Differential Total Cells Counted 100, Neutrophils % (Manual) 84H, Lymphocytes % (Manual) 3L, Monocytes % (Manual) 3, Eosinophils % (Manual) 0, Basophils % ( Manual) 0, Band Neutrophils 10H, Platelet Estimate DecreasedL, Platelet Morphology Normal, Hypochromasia 2+, Anisocytosis 1+, Sodium Level 139, Potassium Level 3.2L, Chloride Level 108H, Carbon Dioxide Level 21, Anion Gap 10 , Blood Urea Nitrogen 18, Creatinine 1.1, Estimat Glomerular Filtration Rate 50.2, Glucose Level 170H, Hemoglobin A1c 8.3H, Lactic Acid Level 1.40, Uric Acid 2.2L, Calcium Level 7.9L, Phosphorus Level 2.4L, Magnesium Level 2.6H, Iron Level 9L, Total Iron Binding Capacity 177L, Percent Iron Saturation 5L, Unsaturated Iron Binding 168, Ferritin 980H, Total Bilirubin 1.0, Gamma Glutamyl Transpeptidase 153H, Aspartate Amino Transf (AST/SGOT) 42H, Alanine Aminotransferase (ALT/SGPT) 35, Alkaline Phosphatase 102, Troponin I 0.141H, C- Reactive Protein, Quantitative 27.0H, Pro-B-Type Natriuretic Peptide 7136H, Total Protein 5.9L, Albumin 2.9L, Globulin 3.0, Albumin/Globulin Ratio 1.0, Triglycerides Level 115, Cholesterol Level 80, LDL Cholesterol 16, HDL Cholesterol 46, Cholesterol/HDL Ratio 1.7L, Thyroid Stimulating Hormone (TSH) 0.900, Cortisol AM Sample [Pending] 10/12/19 07:48: Arterial Blood pH 7.396, Arterial Blood Partial Pressure CO2 31.4L, Arterial Blood Partial Pressure O2 63.7L, Arterial Blood HCO3 18.8L, Arterial Blood Oxygen Saturation 91.8L, Arterial Blood Base Excess -5.2L, Simone Test Positive 10/12/19 10:00: Troponin I 0.147H Current Medications Medications (Trade) Dose Ordered Sig/Rodney Route PRN Reason Start Time Stop Time Status Last Admin Dose Admin Acetaminophen (Tylenol) 650 mg Q4H PRN ORAL fever 10/11/19 12:00 11/10/19 11:59 10/11/19 20:28 Acetaminophen (Tylenol) 650 mg Q4H PRN ORAL Mild Pain (Pain Scale 1-3) 10/11/19 12:00 11/10/19 11:59 10/12/19 05:56 Albuterol/ Ipratropium (Albuterol/ Ipratropium) 3 ml Q4H PRN HHN Shortness of Breath 10/11/19 12:00 10/16/19 11:59 Atorvastatin Calcium (Lipitor) 40 mg BEDTIME ORAL 10/11/19 21:00 11/10/19 20:59 10/11/19 20:27 Azithromycin 500 mg/Dextrose 275 ml @ 275 mls/hr Q24HRS IV 10/12/19 09:00 10/18/19 09:59 10/12/19 08:55 Clonidine HCl (Catapres Tab) 0.1 mg Q4H PRN ORAL bp over 165 syst 10/11/19 12:45 11/10/19 12:44 Clopidogrel Bisulfate (Plavix) 75 mg DAILY ORAL 10/12/19 09:00 11/11/19 08:59 10/12/19 08:47 Dextrose (Dextrose 50%) 25 ml Q30M PRN IV Hypoglycemia 10/11/19 14:00 11/10/19 13:59 Dextrose (Dextrose 50%) 50 ml Q30M PRN IV Hypoglycemia 10/11/19 14:00 11/10/19 13:59 Dextrose/Sodium Chloride 1,000 ml @ 75 mls/hr [id number] IV 10/12/19 09:30 11/10/19 09:29 10/12/19 08:59 Docusate Sodium (Colace) 100 mg TWICE A DAY ORAL 10/11/19 12:45 11/10/19 12:44 10/11/19 12:53 Heparin Sodium (Porcine) (Heparin 5000 units/ml) 5,000 units EVERY 12 HOURS SUBQ 10/11/19 21:00 11/10/19 20:59 10/11/19 20:34 Hydromorphone HCl (Dilaudid) 1 mg Q4H PRN IVP Moderate Pain (Pain Scale 4-6) 10/11/19 12:00 10/18/19 11:59 Hydromorphone HCl (Dilaudid) 2 mg Q4H PRN IVP Severe Pain (Pain Scale 7-10) 10/11/19 12:00 10/18/19 11:59 Insulin Aspart (NovoLOG) BEFORE MEALS AND HS SUBQ 10/11/19 16:30 11/10/19 16:29 10/12/19 06:23 Lorazepam (Ativan) 1 mg Q4H PRN ORAL For Anxiety 10/11/19 12:00 10/18/19 11:59 Ondansetron HCl (Zofran) 4 mg Q6H PRN IVP Nausea & Vomiting 10/11/19 12:00 11/10/19 11:59 Oseltamivir Phosphate (Tamiflu) 30 mg BID ORAL 10/11/19 18:00 10/16/19 17:59 10/12/19 08:47 Pantoprazole (Protonix) 40 mg BID ORAL 10/11/19 12:45 11/10/19 12:44 10/12/19 08:47 Piperacillin Sod/ Tazobactam Sod 3.375 gm/Sodium Chloride 110 ml @ 27.5 mls/hr EVERY 8 HOURS IVPB 10/11/19 14:00 10/16/19 13:59 10/12/19 06:18 Potassium Phosphate 30 mm/ Sodium Chloride 285 ml @ 47.5 mls/hr ONCE ONCE IV 10/12/19 09:30 10/12/19 15:29 10/12/19 09:07 Prednisone (predniSONE) 5 mg DAILY ORAL 10/12/19 09:00 11/11/19 08:59 10/12/19 08:47 Vancomycin HCl (Vanco rx to dose) 1 ea DAILY PRN MISC Per rx protocol 10/11/19 12:45 11/10/19 12:44 Vancomycin HCl 500 mg/Dextrose 110 ml @ 110 mls/hr Q12HR@0600,1800 IVPB 10/11/19 18:00 10/16/19 17:59 10/12/19 05:17 Zolpidem Tartrate (Ambien) 5 mg HSPRN PRN ORAL Insomnia 10/11/19 12:00 10/18/19 11:59 10/11/19 22:55 Akbar Mercado MD Oct 12, 2019 12:33
--- NOTE | 2019-10-12 13:29 | Nephrology Progress Note ---
Assessment/Plan Problem List: (1) ILYA (acute kidney injury) (2) Kidney transplant status (3) Septic shock Assessment Sepsis , high Lactic level UTI s/p Kidney Transplant [address] [facility] Low mag of 1.1 Cr 1.4 - renal failure Anemia Plan Mag IV given yesterday IV Fluids started on the immunosupressants meds I favor transfer to [facility] under transplant team Subjective ROS Limited/Unobtainable: No Interval Events/Complaints seen at 10 am Objective Objective Last 24 Hour Vital Signs Date Time Temp Pulse Resp B/P (MAP) Pulse Ox O2 Delivery O2 Flow Rate FiO2 10/12/19 12:00 97.8 88 20 123/70 (87) 96 10/12/19 12:00 2.0 10/12/19 12:00 Nasal Cannula 2.0 Nasal Cannula 2.0 10/12/19 08:00 Nasal Cannula 2.0 Nasal Cannula 2.0 10/12/19 08:00 98.9 88 21 148/78 (101) 98 10/12/19 08:00 2.0 10/12/19 07:59 90 10/12/19 04:00 2.0 10/12/19 04:00 98.4 83 2 132/63 (86) 97 10/12/19 04:00 83 10/12/19 04:00 Nasal Cannula 2.0 Nasal Cannula 2.0 10/12/19 00:00 98.8 83 24 124/56 (78) 96 10/12/19 00:00 Nasal Cannula 2.0 Nasal Cannula 2.0 10/12/19 00:00 81 10/11/19 20:58 99.9 10/11/19 20:11 84 20 96 Nasal Cannula 2.0 28 10/11/19 20:00 104 10/11/19 20:00 2.0 10/11/19 20:00 Nasal Cannula 2.0 Nasal Cannula 2.0 10/11/19 20:00 101.8 110 26 160/78 (105) 98 10/11/19 16:00 Nasal Cannula 2.0 Nasal Cannula 2.0 10/11/19 16:00 2.0 10/11/19 15:07 92 Intake and Output 10/11/19 10/12/19 19:00 07:00 Intake Total 1598.459 ml 1748.167 ml Balance 1598.459 ml 1748.167 ml Intake Oral 480 ml 240 ml IV Total 1118.459 ml 1508.167 ml # Voids 2 5 # Bowel Movements 1 Laboratory Tests 10/11/19 15:10: Coccidioides Antibody (Comp Fix) [Pending], Mycoplasma pneumoniae IgG Antibody [ Pending], Mycoplasma pneumoniae IgM Ab Titer [Pending] 10/11/19 16:35: Urine Legionella Antigen [Pending] 10/12/19 03:45: White Blood Count 15.8#H, Red Blood Count 3.26L, Hemoglobin 9.7L, Hematocrit 29.6L, Mean Corpuscular Volume 91, Mean Corpuscular Hemoglobin 29.9, Mean Corpuscular Hemoglobin Concent 32.9, Red Cell Distribution Width 12.2, Platelet Count 116L, Mean Platelet Volume 8.6, Neutrophils (%) (Auto) , Lymphocytes (%) ( Auto) , Monocytes (%) (Auto) , Eosinophils (%) (Auto) , Basophils (%) (Auto) , Differential Total Cells Counted 100, Neutrophils % (Manual) 84H, Lymphocytes % (Manual) 3L, Monocytes % (Manual) 3, Eosinophils % (Manual) 0, Basophils % ( Manual) 0, Band Neutrophils 10H, Platelet Estimate DecreasedL, Platelet Morphology Normal, Hypochromasia 2+, Anisocytosis 1+, Sodium Level 139, Potassium Level 3.2L, Chloride Level 108H, Carbon Dioxide Level 21, Anion Gap 10 , Blood Urea Nitrogen 18, Creatinine 1.1, Estimat Glomerular Filtration Rate 50.2, Glucose Level 170H, Hemoglobin A1c 8.3H, Lactic Acid Level 1.40, Uric Acid 2.2L, Calcium Level 7.9L, Phosphorus Level 2.4L, Magnesium Level 2.6H, Iron Level 9L, Total Iron Binding Capacity 177L, Percent Iron Saturation 5L, Unsaturated Iron Binding 168, Ferritin 980H, Total Bilirubin 1.0, Gamma Glutamyl Transpeptidase 153H, Aspartate Amino Transf (AST/SGOT) 42H, Alanine Aminotransferase (ALT/SGPT) 35, Alkaline Phosphatase 102, Troponin I 0.141H, C- Reactive Protein, Quantitative 27.0H, Pro-B-Type Natriuretic Peptide 7136H, Total Protein 5.9L, Albumin 2.9L, Globulin 3.0, Albumin/Globulin Ratio 1.0, Triglycerides Level 115, Cholesterol Level 80, LDL Cholesterol 16, HDL Cholesterol 46, Cholesterol/HDL Ratio 1.7L, Thyroid Stimulating Hormone (TSH) 0.900, Cortisol AM Sample 10.5 10/12/19 07:48: Arterial Blood pH 7.396, Arterial Blood Partial Pressure CO2 31.4L, Arterial Blood Partial Pressure O2 63.7L, Arterial Blood HCO3 18.8L, Arterial Blood Oxygen Saturation 91.8L, Arterial Blood Base Excess -5.2L, Simone Test Positive 10/12/19 10:00: Troponin I 0.147H Height (Feet): 5 Height (Inches): 2.00 Weight (Pounds): 149 General Appearance: no apparent distress Cardiovascular: normal rate Respiratory/Chest: lungs clear Abdomen: soft Jaime Stein MD Oct 12, 2019 13:29
--- NOTE | 2019-10-12 17:47 | Diagnostic Imaging Report ---
Clinical Indication: Shortness of breath Technique: Spiral acquisitions obtained through the chest. No IV contrast utilized, referring physician request. Multiplanar reconstructions generated. Total dose length product 758 mGycm. CTDIvol(s) 17 mGy. Dose reduction achieved using automated exposure control Comparison: Chest radiograph 10/11/2019 Findings: There is mild interstitial congestion. Scattered areas of hazy opacity are seen bilaterally, predominantly in the lower lobes but also to a slight extent in the posterior upper lobes. There are some atelectatic changes at the lung bases and in the posterior left upper lobe. There is trace pleural fluid on the right. The heart is borderline enlarged. There is a small anterior wall pericardial effusion measuring up to 8 mm thick. Prominent but not frankly enlarged mediastinal lymph nodes are noted. The included thyroid is unremarkable. There is a left axillary venous stent. There is a left subclavian/innominate venous stent, patency of which are indeterminate in the absence of IV contrast. However, prominent veins in the left chest wall suggests there is some venoocclusive disease. No axillary or chest wall mass or adenopathy. There are fairly extensive degenerative changes of the lower thoracic spine with extensive disc irregularity and degenerative remodeling Included upper abdominal anatomy demonstrates atrophic bilateral kidneys. Impression: Mild interstitial congestion and areas of scattered hazy airspace opacity, likely secondary to pulmonary edema. Pneumonia also possible There are atelectatic changes bilaterally Trace right pleural effusion Borderline cardiomegaly Small anterior wall pericardial effusion Left axillary and subclavian/innominate venous stent, indeterminate patency in the absence of IV contrast Prominent veins in the left chest wall suggests a degree of venoocclusive disease centrally Atrophic bilateral kidneys, consistent with chronic medical renal disease Degenerative spondylosis The CT scanner at [facility] is accredited by the [employer] and the scans are performed using protocols designed to limit radiation exposure to as low as reasonably achievable to attain images of sufficient resolution adequate for diagnostic evaluation.
--- NOTE | 2019-10-12 22:00 | Consultation ---
DATE OF CONSULTATION: 10/11/2019 INFECTIOUS DISEASES CONSULTATION CONSULTING PHYSICIAN: Ida New M.D. ATTENDING PHYSICIAN: Waqar Carrasco M.D. REFERRING PHYSICIAN: Guero Sherman M.D. REASON FOR CONSULTATION: Sepsis, fevers, pneumonia, urinary tract infection, pyelonephritis. CHIEF COMPLAINT: The patient's chief complaint coming in to the hospital is pneumonia, sepsis, fevers. HISTORY OF PRESENT ILLNESS: This is a 64-year-old female with history of kidney transplant who presented to [facility] with fevers and yellow-green phlegm production. Imaging studies showed chest x-ray to have interstitial congestion with focal airspace opacities were also seen in both lungs and also interstitial congestion could be pulmonary edema. The patient's temperature was as high as 103.4. The patient's urinalysis had 2+ leukocyte esterase and 40 to 60 white blood cells. Infectious Diseases consultation was requested because of possibility of sepsis in this patient with high fevers with also possible UTI, pyelonephritis, and community-acquired pneumonia. Of note, the patient was recently per the records at [facility] and looks like she was diagnosed pneumonia and also influenza, which I am not clear about at this time. The patient when I saw her was started on vancomycin, Zosyn, azithromycin, and also oseltamivir. Case discussed with Dr. Sherman. There was plans to transfer the patient back [place] [facility] because of the complexity of the case including history of renal transplant. I believe that she known at that hospital also as a patient. Cultures are pending at this time. I saw our. MAR was noted. Orders were noted. Notes were reviewed. REVIEW OF SYSTEMS: The patient is not a great historian, but she is responsive and alert. The patient has generalized fatigue. She came in with fevers. There is no mention of chills.HEAD AND NECK: No obvious head pain or neck pain. CARDIAC: No chest pain. GASTROINTESTINAL: No nausea, vomiting, diarrhea. GENITOURINARY: No CVA tenderness. PULMONARY: Maybe mild cough and congestion. No significant hemoptysis or secretions. SKIN: No rash or itching. EXTREMITIES: No extremity pain. NEUROLOGIC: No seizures. Maybe some generalized fatigue. No obvious focal weakness. Review of systems is otherwise limited in this patient. PAST MEDICAL HISTORY: The patient's past medical history includes the following. The patient has a past medical history of renal transplant, history of being immunocompromised, history of diabetes. She is on a anti-lipid medication and could have history of hyperlipidemia or dyslipidemia. She is also on antihypertensives, possible history of hypertension, diabetes, kidney transplant. She also came in with elevated creatinine. ALLERGIES: She has no known drug allergies. SOCIAL HISTORY: No mention of smoking, alcohol, or drug abuse. FAMILY HISTORY: Noncontributory. No mention of exposure to tuberculosis or cancer. MEDICATIONS: Upon reviewing the MAR, she is on the following medications. She is on Zosyn, azithromycin, oseltamivir, vancomycin. She is on Plavix, prednisone, K-Dur, heparin, atorvastatin, Lipitor, intravenous fluids, albuterol treatment, clonidine, labetalol, she has been on the past hydromorphone, acetaminophen, lorazepam, zolpidem. Outside medications noted and reconciliated. PHYSICAL EXAMINATION: VITAL SIGNS: When the patient was admitted, vital signs were as follows. Temperature maximum was 103.4, pulse rate 107, respiratory rate 29, blood pressure 153/62, saturation 92% on 2 liters nasal cannula. GENERAL: Alert and responsive. HEAD AND NECK: Oral exam, no thrush. Eye exam, no icterus. Normocephalic. Neck is supple. HEART: Occasionally tachycardic, but regular. No obvious gallop or murmur. No friction rub. LUNGS: A few bilateral rhonchi, rales, and crackles. ABDOMEN: Soft. Positive bowel sounds. Nontender. SKIN: No rash or dermatitis. MUSCULOSKELETAL: No septic arthritis EXTREMITIES: Lower extremity examination is without cellulitis. PERIPHERAL VASCULAR: No gangrene. No cyanosis. GENITOURINARY: No CVA tenderness. LINE SITES: Without phlebitis. NEUROLOGIC: Generalized weakness, alert and responsive, nonfocal. LABORATORY AND DIAGNOSTIC DATA: White count 6.1, hemoglobin 10.6. Creatinine 1.4. LFTs were noted. Cultures when I saw her, were pending. Urinalysis had 2+ leukocyte esterase and 40 to 60 white blood cells. Lactic acid was 4.0. Imaging studies chest x-ray showed generalized interstitial congestion which may indicate pulmonary edema and also focal airspace opacities in both lungs, left greater than right, this could be a pulmonary airspace edema or infiltrates. ASSESSMENT AND PLAN: 1. The patient has sepsis, SIRS criteria, tachycardia, fevers. Most likely she has urinary tract infection/pyelonephritis and also possible pneumonia such as community-acquired pneumonia, but also since she has recently been in the hospital, she could have some type of healthcare acquired pneumonia, less likely aspiration pneumonia based on clinical presentation. She has fevers and elevated lactic acid level consistent with sepsis also. At this time, we will continue Zosyn, azithromycin, and vancomycin to cover community-acquired pneumonia and also healthcare-acquired pneumonia. This will also cover aspiration process again which is less likely. We will also check influenza screen and continue Oseltamivir. It is unclear what her influenza status is prior but we do note she had pneumonia when she was at [facility]. At this time, we will continue vancomycin, Zosyn, azithromycin, and Oseltamivir or Tamiflu for sepsis, pneumonia, urinary tract infection, pyelonephritis, and fevers, also for influenza infection. Check cultures, labs, and chest x-ray. Plan on transfer to back to [facility] because of history of renal transplant. The case also discussed with Pulmonary Medicine and the patient may need a CT scan of the chest. Also the case discussed with Dr. Sherman. 2. Acute kidney injury, elevated creatinine. 3. Diabetes. 4. Renal transplant. 5. Questionable hyperlipidemia and hypertension. 6. Immunosuppressed patient secondary of renal transplant. 7. Diabetes treatment per primary care team 8. No known drug allergies. 9. Social history is negative. 10. Family history is noncontributory. 11. MAR was noted. 12. Case discussed with RN. 13. MARY KATE care when I saw the patient. 14. Continue treatment per primary wound care center consultant. 15. Orders were noted and entered. Ida New M.D. DR: Zach JOB#: [id number] CC:
--- NOTE | 2019-10-18 09:22 | Cardiology Report ---
APPROVED REPORT EKG Measurement Heart [id number] <Conclusion> Sinus tachycardia Otherwise normal ECG
== END 2019-10-12 12:32 | disposition short-term general hospital (02) | DRG 871 ==
LOC: EDBD 07:40 → EMR 07:53 → 2W 09:06 → EDBEDREQSVC 09:10 → EDBEDREQ 09:10
DX: A41.9 Sepsis, unspecified organism (principal); J18.9 Pneumonia, unspecified organism; N18.6 End stage renal disease; R65.21 Severe sepsis with septic shock; J96.01 Acute respiratory failure with hypoxia; Z94.0 Kidney transplant status; N39.0 Urinary tract infection, site not specified; E87.2 Acidosis; N17.9 Acute kidney failure, unspecified; D69.6 Thrombocytopenia, unspecified; Z79.4 Long term (current) use of insulin; D64.9 Anemia, unspecified; E11.22 Type 2 diabetes mellitus with diabetic chronic kidney disease
CPT/HCPCS: 36415; 36600; 71045; 71250; 80053; 80061; 81003; 82164; 82533; 82550; 82553; 82728; 82803; 82962; 82977; 83036; 83540; 83550; 83605; 83735; 83880; 84100; 84443; 84484; 84550; 85007; 85025; 86140; 86635; 86710; 86738; 87040; 87086; 87181; 93005; 94664; 96365; 96368; 99285; J1815; J8499